=== PATIENT | female | born 1945 | race Caucasian/White ===

== ENCOUNTER → 2018-05-23 | Outpatient (CLI) | payer MEDICARE ==
[2018-05-23 13:24] LABS: ALBUMIN 4.2 g/dL (3.5-5.0); CALCIUM 10.2 mg/dL (8.4-10.2); POTASSIUM 4.9 mmol/L (3.6-5.0); TOTAL BILIRUBIN 0.5 mg/dL (0.2-1.3); TOTAL PROTEIN 7.2 g/dL (6.3-8.2)
[2018-05-23 13:30] LABS: PROTHROMBIN TIME 17.8 SECONDS (9.0-12.0)
== END ==
LOC: LAB 11:23
PROVIDERS: Family Medicine
DX: I12.9 Hypertensive chronic kidney disease with stage 1 through stage 4 chronic kidney disease, or unspecified chronic kidney disease (principal); N18.3 Chronic kidney disease, stage 3 (moderate); I63.9 Cerebral infarction, unspecified; E78.5 Hyperlipidemia, unspecified; E55.9 Vitamin D deficiency, unspecified

== ENCOUNTER → 2018-12-26 | Outpatient (CLI) | payer MEDICARE ==
[~2018-12-26] VITALS: Ht 157.5 cm; Wt 79.5 kg
[~2018-12-26] MED LIST: ASPIR LOW81 MG PO; HCTZ 25MG25 MG PO; KEPPRA 500MG500 MG PO; METOPROLOL SUCC50 M1 PO; SIMVASTATIN40 M1 PO; VITAMIN D32000 UNI1 PO; WARFARIN SOD5 MG PO; ZESTRIL20 M1 PO
[2018-12-26 10:07] LABS: EOS # 0.1 (0.04-0.40); EOS % 2.1 % (1.0-5.0); HEMATOCRIT 43.5 % (37.0-47.0); HEMOGLOBIN 13.8 g/dL (12.5-16.0); MEAN CELL VOLUME 93 fl (78-100); MEAN CORPUSCULAR HEMOGLOBIN 29 pg (27-31); MEAN CORPUSCULAR HGB CONC 32 g/dL (33-37); MONO # 0.5 (0.20-0.80); NEU # 3.9 (1.40-6.50); PLATELET COUNT 164 K/mm3 (130-400); RED BLOOD COUNT 4.69 M/mm3 (4.10-5.30); RED CELL DISTRIBUTION WIDTH 15.4 % (11.5-14.5); WHITE BLOOD COUNT 5.6 K/mm3 (4.8-10.8)
[2018-12-26 10:31] LABS: ALBUMIN 4.1 g/dL (3.5-5.0); CALCIUM 9.5 mg/dL (8.4-10.2); POTASSIUM 4.8 mmol/L (3.6-5.0); TOTAL BILIRUBIN 0.5 mg/dL (0.2-1.3); TOTAL PROTEIN 7.4 g/dL (6.3-8.2)
[2018-12-26 10:45] VITALS: BP 122/78
== END ==
LOC: AMSURD 09:46
PROVIDERS: Family Medicine
DX: I63.412 Cerebral infarction due to embolism of left middle cerebral artery (principal); G40.909 Epilepsy, unspecified, not intractable, without status epilepticus; I10 Essential (primary) hypertension; H26.9 Unspecified cataract

== ENCOUNTER → 2019-01-09 | Day surgery (SDC) | payer MEDICARE ==
[2018-12-26 10:45] VITALS: BP 122/78
== END ==
LOC: MSO 08:23
DX: H26.9 Unspecified cataract (principal); I69.320 Aphasia following cerebral infarction; Z79.01 Long term (current) use of anticoagulants; Z79.82 Long term (current) use of aspirin
CPT/HCPCS: 00142; A9270-GY; J0171; J2250; J3010; V2632

== ENCOUNTER → 2019-02-14 | Outpatient (CLI) | payer MEDICARE ==
[2018-12-26 10:45] VITALS: BP 122/78
[2019-02-14 10:00] LABS: PROTHROMBIN TIME 23.4 SECONDS (9.0-12.0)
== END ==
LOC: LAB 09:19
PROVIDERS: Family Medicine
DX: D68.9 Coagulation defect, unspecified (principal)

== ENCOUNTER → 2019-05-09 | Outpatient (CLI) | payer MEDICARE ==
[2018-12-26 10:45] VITALS: BP 122/78
[2019-05-09 09:34] LABS: PROTHROMBIN TIME 21.3 SECONDS (9.0-12.0)
== END ==
LOC: LAB 09:06
PROVIDERS: Family Medicine
DX: I63.40 Cerebral infarction due to embolism of unspecified cerebral artery (principal)

== ENCOUNTER → 2019-06-21 | Outpatient (CLI) | payer MEDICARE ==
[2018-12-26 10:45] VITALS: BP 122/78
[2019-06-21 08:54] LABS: ALBUMIN 4.1 g/dL (3.4-4.8)
[2019-06-21 08:57] LABS: TOTAL PROTEIN 7.1 g/dL (6.2-8.1)
[2019-06-21 08:59] LABS: TOTAL BILIRUBIN 0.4 mg/dL (0.2-1.2)
[2019-06-21 09:02] LABS: DIRECT BILIRUBIN 0.2 mg/dL (0.0-0.5)
[2019-06-21 09:45] LABS: PROTHROMBIN TIME 19.8 SECONDS (9.0-12.0)
== END ==
LOC: LAB 08:11
PROVIDERS: Family Medicine
DX: I63.9 Cerebral infarction, unspecified (principal); E78.5 Hyperlipidemia, unspecified; I10 Essential (primary) hypertension

== ENCOUNTER → 2019-10-29 | Outpatient (CLI) | payer MEDICARE ==
[2018-12-26 10:45] VITALS: BP 122/78
== END ==
LOC: RAD 12:24
DX: S82.831A Other fracture of upper and lower end of right fibula, initial encounter for closed fracture (principal)

== ENCOUNTER → 2020-02-12 | Outpatient (CLI) | payer MEDICARE ==
[2018-12-26 10:45] VITALS: BP 122/78
[2020-02-12 09:11] LABS: PROTHROMBIN TIME 23.8 SECONDS (9.0-12.0)
== END ==
LOC: LAB 08:27
PROVIDERS: Family Medicine
DX: Z51.81 Encounter for therapeutic drug level monitoring (principal); Z79.01 Long term (current) use of anticoagulants

== ENCOUNTER 2020-10-22 09:41 | Emergency (ER) | payer MEDICARE, OTHER ==
[~2020-10-22 09:41] MED LIST changes: +DECADRON6 M1 PO; +VITAMIN C PUR1000 MG PO; +VITAMIN D325 MC3 PO; +VITAMIN D325 MCG PO; +ZINC50 M4 PO; +ZITHROMAX 250M250 MG PO
[2020-10-22 10:34] LABS: HEMATOCRIT 39.8 % (37.0-47.0); MEAN CELL VOLUME 90 fl (78-100); MEAN CORPUSCULAR HEMOGLOBIN 29 pg (27-31); MEAN CORPUSCULAR HGB CONC 33 g/dL (33-37); MEAN PLATELET VOLUME 11.8 fl (7.4-10.4); PLATELET COUNT 91 K/mm3 (130-400); RED BLOOD COUNT 4.42 M/mm3 (4.10-5.30); RED CELL DISTRIBUTION WIDTH 14.4 % (11.5-14.5); WHITE BLOOD COUNT 4.1 K/mm3 (4.8-10.8)
[2020-10-22 10:46] LABS: ALBUMIN 3.6 g/dL (3.4-4.8); POTASSIUM 4.1 mmol/L (3.5-5.1)
[2020-10-22 10:47] LABS: CALCIUM 8.3 mg/dL (8.3-10.5)
[2020-10-22 10:48] LABS: TOTAL PROTEIN 6.1 g/dL (6.2-8.1)
[2020-10-22 10:50] LABS: TOTAL BILIRUBIN 0.2 mg/dL (0.2-1.2)
[2020-10-22 10:51] LABS: BAND 3 % (0-10); LYMPHOCYTE 6 % (20-51); NEUTROPHILS 84 % (42-75)
[2020-10-22 11:00] LABS: D-DIMER 1.4 mg/L FEU (0.15-0.50); TROPONIN-I 0.03 ng/mL (<0.030)
[2020-10-22 11:04] LABS: PROTHROMBIN TIME 16.4 SECONDS (9.0-12.0)
[2020-10-22 12:18] LABS: ERYTHROCYTE SEDIMENTATION RATE 28 mm/hr (0-30)
[2020-10-22 14:18] LABS: URINE APPEARANCE CLOUDY; URINE BILIRUBIN NEGATIVE (NEGATIVE); URINE BLOOD 50 ery/uL (NEGATIVE); URINE COLOR YELLOW; URINE GLUCOSE NEGATIVE (NEGATIVE); URINE KETONE SMALL (NEGATIVE); URINE LEUKOCYTE ESTERASE NEGATIVE (NEGATIVE); URINE MUCUS PRESENT (NOT PRESENT); URINE NITRATE NEGATIVE (NEGATIVE); URINE PROTEIN(semi-quant) 1+ mg/dL (NEGATIVE); URINE UROBILINOGEN NORMAL (NORMAL)
[2020-10-22 14:45] VITALS: BP 134/94
== END 2020-10-22 14:26 | disposition short-term general hospital (02) ==
LOC: ED 09:41
PROVIDERS: Physician Assistant
DX: U07.1 COVID-19 (principal); J12.82 Pneumonia due to coronavirus disease 2019; I48.91 Unspecified atrial fibrillation; I13.10 Hypertensive heart and chronic kidney disease without heart failure, with stage 1 through stage 4 chronic kidney disease, or unspecified chronic kidney disease; E78.5 Hyperlipidemia, unspecified; G40.909 Epilepsy, unspecified, not intractable, without status epilepticus; Z86.73 Personal history of transient ischemic attack (TIA), and cerebral infarction without residual deficits; Z87.891 Personal history of nicotine dependence; Z79.01 Long term (current) use of anticoagulants; Z79.82 Long term (current) use of aspirin